=== PATIENT | male | born 1985 | race Asian ===

== ENCOUNTER 2020-06-26 09:13 | Outpatient (REF) | payer OTHER, SELFPAY ==
[2020-06-26 09:33] LABS: COVID-19 Test Negative (Negative); IDNOW Serial# 55D5AD1C
== END 2020-06-26 09:14 | disposition home or self-care (01) ==
LOC: HO.EMPCOV 09:13
PROVIDERS: PCP Internal Medicine; Visit Provider Internal Medicine
DX: Z20.828 Contact with and (suspected) exposure to other viral communicable diseases (principal)
CPT/HCPCS: 87635; C9803

== ENCOUNTER 2020-08-12 09:41 | Outpatient (REF) | payer OTHER, SELFPAY ==
[2020-08-12 10:51] LABS: Hematocrit 45.1 % (42-52); Hemoglobin 14.6 g/dl (14.0-18.0); Mean Corpuscular HGB Conc 32.4 g/dl (31.0-36.0); Mean Corpuscular Hemoglobin 28.9 pg (27.0-33.0); Mean Corpuscular Volume 89.3 fL (80-98); Mean Platelet Volume 10.4 fL (9.4-12.4); Platelet Count 263 X10*3/uL (160-400); Red Blood Count 5.05 X10*6/uL (4.60-5.80); Red Cell Distribution Width 12.1 % (11.0-16.0); White Blood Count 6.1 X10*3/uL (4.8-10.8)
[2020-08-12 11:31] LABS: Alanine Aminotransferase 42 U/L (0-40); Albumin Level 4.6 g/dL (3.5-5.0); Alkaline Phosphatase 86 U/L (39-117); Amylase 49 U/L (28-100); Anion Gap 14 (12-20); Aspartate Amino Transferase 22 U/L (5-37); Bilirubin Direct 0.6 mg/dL (0.0-0.5); Bilirubin Total 1.6 mg/dL (0.0-1.0); Blood Urea Nitrogen 25 mg/dL (9-16); Calcium 9.2 mg/dL (8.4-10.2); Carbon Dioxide 25 mmol/L (22-29); Chloride 104 mmol/L (96-108); Estimated Glomerular Filt Rate > 60; Glucose Random 90 mg/dL (60-115); Lipase 22 U/L (8-78); Potassium 4.8 mmol/l (3.3-5.1); Sodium 138 mmol/L (135-145); Total Protein 7.7 g/dL (6.5-8.0)
== END 2020-08-12 09:42 | disposition home or self-care (01) ==
LOC: HO.LAB 09:41
PROVIDERS: PCP Internal Medicine; Visit Provider Internal Medicine
DX: K29.70 Gastritis, unspecified, without bleeding (principal)
CPT/HCPCS: 36415; 80048; 80076; 82150; 83690; 85027

== ENCOUNTER → 2020-09-01 10:08 | Outpatient (BNVA) | payer OTHER, SELFPAY | PROVIDERS: PCP Internal Medicine; Visit Provider Physician Assistant ==

== ENCOUNTER 2020-09-23 13:40 | Day surgery (SDC) | payer OTHER, SELFPAY ==
--- NOTE | 2020-09-22 09:42 | HO.ANESPROP2 ---
Documented by User: Josiane Avalos 09/22/20 09:43 HPI - Anesthesia Eval Consult details Narrative: 34yo M for Upper Endoscopy PMFSH Active Problems Active Problems: All Active Problems (Updated 09/04/20 @ 18:50 by Carolina Sneed PA-C) Chronic GERD (Acute) Peptic ulcer (Acute) Gastritis (Acute) Past Medical History Medical History Peptic ulcer Family History Family History Mother No problems noted. Father No problems noted. Surgical History Surgical History History of esophagogastroduodenoscopy (EGD) (~2018) History of laser refractive surgery Social History Social History Alcohol intake: current Alcohol intake frequency: holidays/special occasions only Smoking Status: Never smoker Years Smoked: Hookah once in a while Use of substances other than those prescribed or required for medical reasons: No Have you been hit, kicked, punched, or otherwise hurt by someone within the past year? 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 Allergies Allergy/AdvReac Type Severity Reaction Status Date / Time No Known Allergies Allergy Verified 09/01/20 10:19 [No Known Allergies*] seasonal Allergy Unknown runny Uncoded 09/25/13 00:00 nose, itchy eyes Home Medications Medication Instructions Recorded Confirmed Last Taken Type pantoprazole 40 mg tablet,delayed 40 mg PO DAILY tab 09/01/20 Unknown History release Exam Exam Date and Time: September 22, 2020 0942 Pertinent Lab Results Pertinent Lab Results: Laboratory Tests 08/12/20 08/12/20 09:50 09:50 WBC 6.1 Hgb 14.6 Hct 45.1 Plt Count 263 Sodium 138 Potassium 4.8 Chloride 104 Carbon Dioxide 25 BUN 25 H Creatinine 1.06 Assessment and Plan Assessment Anesthesia Assessment: Chart Reviewed Documented by User: Eden Benson 09/23/20 14:09 [facility] Past Medical History Medical History Peptic ulcer Family History Family History Mother No problems noted. Father No problems noted. Surgical History Surgical History History of esophagogastroduodenoscopy (EGD) (~2018) History of laser refractive surgery Social History Social History Alcohol intake: current Alcohol intake frequency: holidays/special occasions only Smoking Status: Never smoker Years Smoked: Hookah once in a while Use of substances other than those prescribed or required for medical reasons: No Have you been hit, kicked, punched, or otherwise hurt by someone within the past year? 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
[2020-09-23 13:41] VITALS: BP 106/49; PULSE 77; RESP 16; TEMP 36.3
[2020-09-23 13:55] VITALS: BP 128/84; PULSE 73; RESP 16; TEMP 36.4; BMI 25.0
[2020-09-23] MEDS: Lactated Ringers 1,000 ML 100 ML IVCONT (14:19)
--- NOTE | 2020-09-23 14:22 | PC.NURSE ---
DR. LAINEZ (ANESTHESIOLOGIST) STATED SHE IS OKAY THAT PATIENT ATE A YOGURT AND SOME WATER AT 0700 THIS AM.
--- NOTE | 2020-09-23 14:40 | MHC.SHP ---
Pre-Procedural Eval Section B Chief Complaint: ulcers Relevant Family History (Specify if Yes): No Relevant Social History: None Present Medications: see Short Stay Collaborative assessment Medical History: Significant History (gerd, gastritis) History of Previous Operations: No relevant previous surgery Allergies: Allergies Allergy/AdvReac Type Severity Reaction Status Date / Time No Known Allergies Allergy Verified 09/01/20 10:19 [No Known Allergies*] seasonal Allergy Unknown runny Uncoded 09/25/13 00:00 nose, itchy eyes Review of Systems Sugical H&P ROS: Negative: Constitution, Cardiovascular, Respiratory, Neurological, Psychiatric, Hem-Onc, Allergic/Immunologic, Gastrointestinal, Genitourinary, Musculoskeletal, Integumentary, Endocrine and Eyes/Ears/Nose/Throat Exam Surgical H&P Exam: Normal: HEENT, Normal: Heart, Normal: Lungs, Normal: Extremities, Normal: Abdomen, Normal: Skin and Normal: Neurological Plan Diagnosis/Plan: Unchanged I have reviewed the history and physical and performed a pertinent physical examination on my patient. No changes have occurred unless specified.
--- NOTE | 2020-09-23 14:54 | PM.OP ---
Brief Operative Note Date of Service: 09/23/20 Pre-op diagnosis: epigastric pain Post-op diagnosis: same Procedure: see op note Surgeon: Juve Cesar MD Anesthesia: MAC Estimated blood loss (mL): 0 Condition: stable Disposition: PACU
--- NOTE | 2020-09-23 14:54 | W.PM.OPN ---
Operative Note Operative Note Date of Service: 09/23/20 Narrative: Procedure Description: EGD FLEXIBLE TRANSORAL UPPER GASTROINTESTINAL ENDOSCOPY UPPER ENDOSCOPY Consent: Indications for the procedure and potential complications of bleeding, perforation, reaction to medications and missed diagnosis were discussed with the patient and informed consent was obtained. Instrument: Olympus GIF H 190 J mid size upper endoscope Monitoring: Vital signs and clinical assessment, continuous EKG monitoring, Pulse oximetry, Carbon Dioxide monitoring and blood pressure monitoring were done throughout the procedure. Procedure: The patient was placed in the left lateral decubitis position and pre-procedure medications were administered and a bite block was placed. The endoscope was inserted into the mouth and advanced under direct vision to the third part of duodenum. A careful inspection was made as the upper endoscope was withdrawn including a retroflexed examination of the proximal stomach; Findings and interventions are described below. Findings: Larynx:normal Esophagus: GE junction at 40 cm, diaphragm hiatus at 40 cm, LA grade A esophagitis with tongue of salmon colored tissue about 2-3 cm, WATS brushing and biopsy taken as well as ransom esophagus Stomach: Patchy gastric erythema. Biopsies were obtained. Grade 2 flap valve on retroflexed examination of the cardia. Duodenum: erosive bulbar duodenitis, bx taken Intervention: Biopsies as noted above Impression/Findings: erosive duodenitis gastritis esophagitis possible barretts PLAN: check PPi hx, if compliant then increase dose or change formulation avoid nsaid if h pylori pos then treat consider gastrin level check if ongoing issues
[2020-09-23 15:52] VITALS: BP 109/75; PULSE 66; RESP 16; TEMP 36.4; O2SAT 100
== END 2020-09-23 16:07 | disposition home or self-care (01) ==
PROVIDERS: PCP Internal Medicine; Visit Provider Internal Medicine Gastroenterology
PROC: 0DJ08ZZ Inspection of Upper Intestinal Tract, Via Natural or Artificial Opening Endoscopic (ICD-10-PCS; CPT 43235; principal; 2020-09-23 15:10)
DX: K29.80 Duodenitis without bleeding (principal); K29.50 Unspecified chronic gastritis without bleeding; K21.00 Gastro-esophageal reflux disease with esophagitis, without bleeding; K44.9 Diaphragmatic hernia without obstruction or gangrene; Z79.899 Other long term (current) drug therapy
CPT/HCPCS: 43239; 88305; 88342

== ENCOUNTER 2020-10-06 08:49 | Outpatient (REF) | payer OTHER, SELFPAY ==
[2020-10-06 09:07] LABS: COVID-19 Test Negative (Negative); IDNOW Serial# 55D5AD1C
== END 2020-10-06 08:50 | disposition home or self-care (01) ==
LOC: HO.EMPCOV 08:49
PROVIDERS: Visit Provider Internal Medicine
DX: Z20.822 Contact with and (suspected) exposure to COVID-19 (principal)
CPT/HCPCS: 36415; 87635; C9803

== ENCOUNTER 2020-10-19 10:37 | Outpatient (REF) | payer OTHER, SELFPAY ==
[2020-10-19 10:59] LABS: COVID-19 Test Negative (Negative)
== END 2020-10-19 10:38 | disposition home or self-care (01) ==
LOC: HO.LAB 10:37
PROVIDERS: Visit Provider Internal Medicine
DX: Z20.822 Contact with and (suspected) exposure to COVID-19 (principal)
CPT/HCPCS: 36415; 87635; C9803

== ENCOUNTER 2020-11-24 09:11 | Outpatient (REF) | payer OTHER, SELFPAY ==
[2020-11-25 14:31] LABS: H Pylori Breath Test NOT DETECTED (NOT DETECTED)
== END 2020-11-24 09:12 | disposition home or self-care (01) ==
LOC: HO.LNP 09:11
PROVIDERS: PCP Internal Medicine; Visit Provider Internal Medicine Gastroenterology
DX: K29.70 Gastritis, unspecified, without bleeding (principal)
CPT/HCPCS: 83013

== ENCOUNTER → 2022-05-26 12:09 | Outpatient (RCR) | payer OTHER, SELFPAY ==
[2020-06-19 08:31] LABS: COVID-19 Test Negative (Negative)
[2020-07-25 14:01] LABS: SARS-COV-2 PCR UMBRL NOT DETECTED
[2020-08-03 09:48] LABS: SARS-COV-2 PCR UMBRL Not Detected
[2020-08-11 09:50] LABS: SARS-COV-2 PCR UMBRL Not Detected
[2020-08-19 10:00] LABS: SARS-COV-2 PCR UMBRL NOT DETECTED
[2020-08-19 11:41] LABS: COVID-19 Test Negative (Negative); IDNOW Serial# 55D5AD1C
[2020-08-23 09:52] LABS: SARS-COV-2 PCR UMBRL NEGATIVE
== END | disposition home or self-care (01) ==
LOC: HO.EMPCOV 06-19 07:51
PROVIDERS: PCP Internal Medicine; Visit Provider Internal Medicine
DX: Z20.828 Contact with and (suspected) exposure to other viral communicable diseases (principal)
CPT/HCPCS: 36415; 87635; C9803; U0003